=== PATIENT | female | born 1955 | race African-American/Black ===

== ENCOUNTER → 2019-04-19 | Outpatient (CLI) | payer BC ==
--- NOTE | 2019-04-20 16:49 | RADIOLOGY REPORT (SQ) ---
EXAM DESCRIPTION: MRI RT LOWER JOINT WITHOUT COMPLETED DATE/TIME: 04/19/2019 6:43 pm REASON FOR STUDY: M25.371 OTHER INSTABILITY, RIGHT ANKLE M25.371 OTHER INSTABILITY, RIGHT ANKLE COMPARISON: None. TECHNIQUE: Right ankle images acquired and stored on PACS. Multiplanar images include fat sensitive sequences as T1, fluid sensitive sequences as FST2/STIR, cartilage sensitive sequences as FSPD, and g radient echo sequences. LIMITATIONS: None. FINDINGS: BONE MARROW: Mild marrow edema and cystic changes within the calcaneus underlying the subt alar joint. Mild navicular subchondral edema, likely related to talonavicular degenerative disease. Suspect similar changes along the cuneiform- metatarsal articulations. EFFUSIONS: No subtalar or tibiotalar effusions. No loose bodies. OSSEOUS ARTICULATIONS: Apparent pes planus. No subluxation or dislocation. TALAR DOME AND TIBIAL PLAFOND: No osteochondral defects. ACHILLES TENDON: Intact without partial or full-thickness tear. No adjacent bursal fluid or edema. TIBIALIS ANTERIOR TENDON: Intact without edema at the 1st MT attachment. TIBIALIS POSTERIOR TENDON: Tendon looks essentially completely torn above the level of the medial mal leolus. Stump of tissue and distal tendon below the medial malleolus noted. FLEXOR HALLUCIS LONGUS AND FLEXOR DIGITORUM TENDONS: Normal morphology and no tendon sheath fluid. No edema of the os trigonum. PERONEUS LONGUS AND BREVIS TENDON: Normal morphology and no tendon sheath fluid. No subluxation. ATFL, CFL, PTFL: Intact. No thickening or signal alteration. No joseph-ligamentous fluid. DELTOID LIGAMENT: Visualized components intact. TARSAL TUNNEL: No masses. No muscle atrophy. SINUS TARSI: Relatively preserved fat. PLANTAR FASCIA: No signal alteration or tear. ADJACENT SOFT TISSUES: No masses. OTHER: No other significant finding. IMPRESSION: 1. Posterior tibial tendon rupture. 2. Pes planus. 3. Subtalar, talonavicular and tarsometatarsal arthropathy. TECHNICAL DOCUMENTATION: JOB ID: [id number] [employer]- All Rights Reserved Reading location - IP/workstation name: [email or web address]
== END ==
LOC: RAD 17:59
PROVIDERS: ATTEND Physician Assistant
DX: M25.371 Other instability, right ankle (principal)

== ENCOUNTER → 2019-09-16 | Day surgery (SDC) | payer BC ==
[~2019-09-16] MED LIST: LIDOCAINE 1%/EPINEPHRINE INJ 20 ML VIAL ONE; LIDOCAINE 2% INJ (20 MG/ML) 20 ML MDV ONE
--- NOTE | 2019-09-19 15:26 | WOMENS IMAGING REPORT ---
EXAM DESCRIPTION: STEREO BREAST BX; RIGHT DIAGNOSTIC MAMMO W/CAD COMPLETED DATE/TIME: 09/19/2019 12:35 pm; 09/19/2019 12:42 pm REASON FOR STUDY: OTHER ABNORMAL AND INCONCLUSIVE FINDINGS ON DX IMAGING OF BREAST (R92.8); RT BREAS T BIOPSY R92.8 OTH ABN AND INCONCLUSIVE FINDINGS ON DX IMAGING OF [place] COMPARISON: 08/14/2019. TECHNIQUE: Vacuum-assisted stereotactic-guided biopsy of the lesion in the right breast. Serial prog ress stereotactic and single digital images acquired. PROCEDURE: The procedure was discussed with the patient, including possible complications such as bleeding, infection, nondiagnostic sample or possible findings such as atypical ductal hyperplasia wh ich would require additional surgery. Possible clip placement was explained. The patient agreed t o the procedure. The patient was placed prone on the stereotactic table. The lesion in the breast was localized ster eotactically. The skin of the breast was prepped in sterile fashion. Superficial and deep local an esthesia was provided. A small incision was made in the skin and the biopsy probe was advanced to t he target. Using the vacuum-assisted core biopsy device, multiple core specimens were obtained. Continuous low dose infusion of local anesthesia was used during the procedure. A specimen radiograph was obtained. The radiograph demonstrated calcifications in the biopsy tissue. Using [id number] technique a barrel clip was deployed at the biopsy site. Mammographic image confirmed presence of the clip. The probe was then removed and hemostasis obtained with manua l compression. A compression bandage was applied. Postoperative instructions were explained to th e patient. POST-PROCEDURE TWO VIEW DIGITAL MAMMOGRAM: An additional two view mammogram was recorded in the [facility] mammographic suite. Marker clip is present at the biopsy site. LIMITATIONS: None. FINDINGS: PATHOLOGY: Fibrocystic changes with microcalcifications. Negative for atypia and malignan cy. CONCORDANT: Yes. POST PROCEDURE MAMMOGRAMS FOR MARKER PLACEMENT: Yes IMPRESSION: SUCCESSFUL STEREOTACTIC-GUIDED BIOPSY OF THE LESION IN THE RIGHT BREAST. BIOPSY RESULT S ARE CONCORDANT WITH IMAGING FINDINGS. FOLLOW-UP: PATIENT CAN RESUME ROUTINE SCREENING SCHEDULE DETERMINED BY HER AND HER PHP. NOTIFICATION: THE PATIENT'S PHP HAS BEEN NOTIFIED OF THE RESULTS. HE/SHE WILL DISCUSS THE RESULTS WIT H THE PATIENT AND SCHEDULE ADDITIONAL INTERVENTION NEEDED. COMMENT: Patient medication list reviewed: Yes- Quality ID# [id number]:Eligible professional attests to doc umenting in the medical record they obtained, updated, or reviewed the patient's current medications. TECHNICAL DOCUMENTATION: JOB ID: [id number] [employer]- All Rights Reserved Reading location - IP/workstation name: [email or web address]
== END ==
LOC: RAD 08:04
PROVIDERS: ATTEND Surgery
DX: R92.0 Mammographic microcalcification found on diagnostic imaging of breast (principal); N60.11 Diffuse cystic mastopathy of right breast; Z88.2 Allergy status to sulfonamides; Z79.899 Other long term (current) drug therapy; E78.00 Pure hypercholesterolemia, unspecified; E78.5 Hyperlipidemia, unspecified; I10 Essential (primary) hypertension; M79.7 Fibromyalgia; E04.9 Nontoxic goiter, unspecified
CPT/HCPCS: 88305 ×2; 88342; 19081; 77065; J3490 ×2